=== PATIENT | female | born 1955 | race Caucasian/White ===

== ENCOUNTER 2019-10-21 14:54 | Emergency (ER) | payer MEDICAID ==
--- NOTE | 2019-10-21 15:32 | ER Document Report ---
ED Medical Screen (RME) - General Chief Complaint: Finger Injury Stated Complaint: FINGER PAIN Time Seen by Provider: 10/21/19 15:31 Notes: This 64-year-old female presented emergency room today stating she had discomfort to her left hand ring finger she has a lot of swelling inflammation excessive warmth to the area she said it started yesterday while she was just hugging a child. I greeted and performed a rapid initial assessment of this patient. Comprehensive ED assessment and evaluation of the patient, analysis of test results and completion of the medical decision making process will be conducted by additional ED providers. - Related Data Allergies/Adverse Reactions: hydromorphone [From Dilaudid] Allergy (Verified 10/21/19 15:30) morphine Allergy (Verified 10/21/19 15:30) Physical Exam - Vital signs Vitals: Temp Pulse Resp BP Pulse Ox 98.9 F 89 14 141/76 H 97 10/21/19 15:09 10/21/19 15:09 10/21/19 15:09 10/21/19 15:09 10/21/19 15:09 Course - Vital Signs Vital signs: Temp Pulse Resp BP Pulse Ox 98.9 F 89 14 141/76 H 97 10/21/19 15:09 10/21/19 15:09 10/21/19 15:09 10/21/19 15:09 10/21/19 15:09
[2019-10-21 16:28] LABS: ABSOLUTE BASOPHILS # (AUTO) 0.1 10^3/uL (0.0-0.2); ABSOLUTE LYMPHOCYTES (AUTO) 1.9 10^3/uL (0.5-4.7); ABSOLUTE MONOCYTES (AUTO) 0.6 10^3/uL (0.1-1.4); ABSOLUTE NEUT (AUTO) 4.4 10^3/uL (1.7-8.2); EOSINOPHILS % (AUTO) 0.6 % (0-6); HEMATOCRIT 38.8 % (36.0-47.0); HEMOGLOBIN 13.5 g/dL (12.0-15.5); LYMPHOCYTES % (AUTO) 27.4 % (13-45); MEAN CORPUSCULAR HGB CONC 34.8 g/dL (32.0-36.0); MEAN CORPUSCULAR VOLUME 95 fl (80-97); MONOCYTES % (AUTO) 7.9 % (3-13); PLATELET COUNT 263 10^3/uL (150-450); SEGMENTED NEUTROPHILS % (AUTO) 63.1 % (42-78); TOTAL CELLS COUNTED % (AUTO) 100 %
--- NOTE | 2019-10-21 16:37 | RADIOLOGY REPORT (SQ) ---
EXAM DESCRIPTION: HAND LEFT 3 VIEWS IMAGES COMPLETED DATE/TIME: 10/21/2019 4:25 pm REASON FOR STUDY: pain COMPARISON: None. EXAM PARAMETERS: NUMBER OF VIEWS: Three views. TECHNIQUE: AP, lateral and oblique radiographic images acquired of the left hand. LIMITATIONS: None. FINDINGS: MINERALIZATION: Normal. BONES: Minimally displaced index finger distal phalanx dorsal plate fracture. Mild scattered degener ative changes of the interphalangeal and metacarpophalangeal joints. JOINTS: No effusions. SOFT TISSUES: No soft tissue swelling. No foreign body. OTHER: No other significant finding. IMPRESSION: Mildly displaced and he was finger distal phalanx dorsal plate fracture. TECHNICAL DOCUMENTATION: JOB ID: [id number] 2010 [employer]- All Rights Reserved Reading location - IP/workstation name: [email or web address]
[2019-10-21 16:49] LABS: ALBUMIN 4.3 g/dL (3.5-5.0); ALKALINE PHOSPHATASE 62 U/L (38-126); ASPARTATE AMINO TRANSFERASE 20 U/L (14-36); BILIRUBIN,TOTAL 0.3 mg/dL (0.2-1.3); BLOOD UREA NITROGEN 11 mg/dL (7-20); CALCIUM 9.5 mg/dL (8.4-10.2); CHLORIDE 105 mmol/L (98-107); GLUCOSE 102 mg/dL (75-110); POTASSIUM 4.3 mmol/L (3.6-5.0); TOTAL PROTEIN 7.1 g/dL (6.3-8.2)
[2019-10-21 16:54] LABS: CARBON DIOXIDE 29 mmol/L (22-30)
[2019-10-21 17:01] LABS: ANION GAP 4 (5-19)
[2019-10-21] MEDS ORDERED: ACETAMINOPHEN 325 MG TABLET PO ONE (18:57)
[2019-10-21 20:09] VITALS: BP 143/78
[2019-10-21] MEDS ORDERED: HYDROCODONE/ACETAMINOPHEN 5-325 MG TABLET PO ONE (20:13)
--- NOTE | 2019-10-21 20:19 | ER Document Report ---
ED Hand/Wrist Injury - General Chief Complaint: Hand Pain Stated Complaint: FINGER PAIN Time Seen by Provider: 10/21/19 15:31 Notes: CHIEF COMPLAINT: Left third finger injury yesterday HPI: 64-year-old female presenting to the emergency department complaining of an injury to the left third finger that occurred yesterday. Patient was holding a child on her lap and bent down to tie something on a shoe and felt something snap in the left third finger. Patient complains of pain to the base of the finger ever since with difficulty extending the finger. Denies numbness or tingling. ROS: See HPI - all other systems were reviewed and are otherwise negative Constitutional: no fever Integumentary: no rash Allergy: no hives Musculoskeletal: + extremity pain or swelling Neurological: no numbness/tingling MEDICATIONS: I agree with the patient medications as charted by the RN. ALLERGIES: I agree with the allergies as charted by the RN. PAST MEDICAL HISTORY/PAST SURGICAL HISTORY: Reviewed and agree as charted by RN. SOCIAL HISTORY: Reviewed and agree as charted by RN. FAMILY HISTORY: No significant familial comorbid conditions directly related to patient complaint EXAM: Reviewed vital signs as charted by RN. CONSTITUTIONAL: Alert and oriented and responds appropriately to questions. Well-appearing; well-nourished HEAD: Normocephalic; atraumatic EYES: Conjunctivae clear, sclerae non-icteric ENT: normal nose; no rhinorrhea; moist mucous membranes NECK: Supple without meningismus CARD: symmetric distal pulses RESP: Normal chest excursion without splinting or tachypnea ABD/GI: non-distended. BACK: The back appears normal EXT: There is limited extension of the left long finger at the MCP region. Patient is able to flex and extend at the PIP and DIP joint space regions. There is tenderness on palpation over the dorsal aspect of the proximal phalanx of the left third finger. Sensation is intact in the distal tip of the finger with capillary refill less than 3 seconds SKIN: Normal color for age and race; warm; dry; good turgor; no acute lesions noted NEURO: sensory function intact PSYCH: The patient's mood and manner are appropriate. Grooming and personal hygiene are appropriate. MDM: 64-year-old female with injury to the left third finger yesterday. Subtle fracture noted by radiology, likely a tendon type injury based on patient history and exam. Will treat patient's pain placed in a finger splint for comfort and extension and referred to orthopedics follow-up - Related Data Allergies/Adverse Reactions: hydromorphone [From Dilaudid] Allergy (Verified 10/21/19 15:30) morphine Allergy (Verified 10/21/19 15:30) Past Medical History - Social History Smoking Status: Current Every Day Smoker Chew tobacco use (# tins/day): No Frequency of alcohol use: None Drug Abuse: None Family History: Reviewed & Not Pertinent Patient has homicidal ideation: No Musculoskeletal Medical History: Reports Hx Arthritis Physical Exam - Vital signs Vitals: Temp Pulse Resp BP Pulse Ox 98.9 F 89 14 141/76 H 97 10/21/19 15:09 10/21/19 15:09 10/21/19 15:09 10/21/19 15:09 10/21/19 15:09 Course - Vital Signs Vital signs: Temp Pulse Resp BP Pulse Ox 97.8 F 80 18 143/78 H 99 10/21/19 20:00 10/21/19 20:00 10/21/19 20:00 10/21/19 20:00 10/21/19 20:00 - Laboratory Result Diagrams: 10/21/19 16:00 10/21/19 16:00 Laboratory results interpreted by me: 10/21/19 16:00 Anion Gap 4 L Discharge - Discharge Clinical Impression: Fracture of finger, left, closed Qualifiers: Encounter type: initial encounter Finger: middle finger Phalanx: unspecified phalanx Fracture alignment: nondisplaced Qualified Code(s): S62.603A - Fracture of unspecified phalanx of left middle finger, initial encounter for closed fracture Condition: Stable Disposition: HOME, SELF-CARE Instructions: Fractured Finger ([facility]) Additional Instructions: Ice the left third finger 3-4 times daily for 5 to 10 minutes at a time elbow swelling and pain do not place ice directly on the skin. Pain medications as prescribed, do not drive if taking narcotics for pain. Follow-up with orthopedics for further evaluation and treatment call for appointment. Small fracture on the finger, use the splint for comfort for the next week, you may take it off to shower and bathe Prescriptions: Hydrocodone/Acetaminophen [[place] 5-325 mg Tablet] 1 tab PO Q4 PRN #15 tablet PRN Reason: Diclofenac Sodium [Voltaren 50 Mg Tablet.] 50 mg PO BID #20 tablet. Referrals: THOMAS MOORE MD [ACTIVE STAFF] - Follow up as needed
== END 2019-10-21 20:37 | disposition home or self-care (01) ==
LOC: ER 14:54
PROC: 2W3KX1Z Immobilization of Left Finger using Splint (ICD-10-PCS; principal; 2019-10-21)
DX: S62.603A Fracture of unspecified phalanx of left middle finger, initial encounter for closed fracture (principal); M79.645 Pain in left finger(s); X58.XXXA Exposure to other specified factors, initial encounter; F17.200 Nicotine dependence, unspecified, uncomplicated; Z88.8 Allergy status to other drugs, medicaments and biological substances
CPT/HCPCS: 36415; 80053; 85025; 99283